=== PATIENT | female | born 1980 | race Two or more races ===

== ENCOUNTER 2016-06-17 06:36 | Emergency (ER) | payer OTHER, MEDICAID ==
[2016-06-17 07:22] LABS: HCG,QUALITATIVE URINE NEGATIVE
[2016-06-17] MEDS ORDERED: IBUPROFEN 600 MG TABLET ONE (07:55)
[2016-06-17] MEDS ORDERED: HYDROCODONE/ACETAMINOPHEN 5/325MG TABLET ONE (07:55)
[2016-06-17 08:02] LABS: URINE APPEARANCE CLEAR; URINE BILIRUBIN NEGATIVE (NEGATIVE); URINE BLOOD 1+ (NEGATIVE); URINE COLOR YELLOW; URINE GLUCOSE (UA) NEGATIVE (NEGATIVE); URINE LEUKOCYTE ESTERASE NEGATIVE (NEGATIVE); URINE NITRITE NEGATIVE (NEGATIVE); URINE PROTEIN TRACE (NEGATIVE); URINE UROBILINOGEN NORMAL (0-1 mg/dl)
[2016-06-17 08:16] LABS: URINE BACTERIA TRACE
--- NOTE | 2016-06-17 08:22 | CT ---
Exam: CT abdomen and pelvis without contrast COMPARISON: None INDICATION: Back pain since Wednesday, headache, tingling in all extremities. Specifically mild right CVA tenderness with small amount of blood in urine. TECHNIQUE: CT examination of the abdomen and pelvis was obtained without contrast using a renal stone protocol. FINDINGS: No calculus is identified within either kidney, ureter or bladder. There is no hydronephrosis or perinephric stranding. The bowel, including the appendix, is unremarkable and there is no bowel obstruction, free air or free intraperitoneal fluid. Surgical clips are noted within the pelvis. Uterus is present and unremarkable. No obvious adnexal mass. The liver, spleen, pancreas, kidneys, adrenal glands and gallbladder are all unremarkable as noncontrast exam. Lung bases are clear. No worrisome lytic or blastic osseous abnormality is identified. IMPRESSION: Negative CT examination of the abdomen and pelvis. Report called to Dr. Tri Salazar 0817 hours 06/17/2016.
== END 2016-06-17 09:08 | disposition home or self-care (01) ==
LOC: ED 06:36
DX: R10.9 Unspecified abdominal pain (principal); R05 Cough
CPT/HCPCS: 81025; 81001; 74176; 99283 ×2; 51798; A9270 ×2

== ENCOUNTER 2016-06-23 17:47 | Emergency (ER) | payer OTHER, MEDICAID ==
[2016-06-23] MEDS ORDERED: DIPHENHYDRAMINE HCL 50 MG/1 ML VIAL ONE (18:55)
[2016-06-23] MEDS ORDERED: DEXAMETHASONE SOD PHOS 10 MG/1 ML VIAL ONE (18:55)
[2016-06-23] MEDS ORDERED: KETOROLAC TROMETHAMINE 30 MG/ML 1 ML VIAL ONE (18:55)
[2016-06-23 19:02] LABS: ABSOLUTE NEUTROPHIL COUNT 6.7 K/mm3 (1.8-7.7); BASO # 0.1 K/mm3 (0.0-0.2); BASO % 0.5 % (0.2-1.0); EOS # 0.3 (0.0-0.5); EOS % 2.7 % (0.9-2.9); HEMATOCRIT 39.5 % (37.0-47.0); HEMOGLOBIN 12.7 gm/l (12.0-16.0); IMM NEUT% 0.2 % (0-1); LYMPH % 20.6 % (15-45); MEAN CELL VOLUME 91.4 fl (81.0-99.0); MEAN CORPUSCULAR HEMOGLOBIN 29.4 pg (27.0-31.0); MEAN CORPUSCULAR HGB CONC 32.2 g/dl (33.0-37.0); MEAN PLATELET VOLUME 10.3 fl (7.4-10.4); MONO # 0.8 (0.0-0.8); PLATELET COUNT 344 K/mm3 (130-400); RED CELL DISTRIBUTION WIDTH 13.1 % (11.5-14.5)
[2016-06-23 19:18] LABS: ALB/GLOB RATIO 1.2 (>1.0); ALBUMIN 4.3 gm/dL (3.5-5.7); CALCIUM 9.6 mg/dL (8.6-10.3)
== END 2016-06-23 20:12 | disposition home or self-care (01) ==
LOC: ED 17:47
DX: R51 Headache (principal); G51.0 Bell's palsy
CPT/HCPCS: 84703; 85025; 82550; 80053; 96375 ×2; 99283 ×2; 96374; J1200; J1100; J1885